=== PATIENT | female | born 1990 | race Caucasian/White ===

== ENCOUNTER 2020-11-20 11:46 | Outpatient (RCR) | payer OTHER, SELFPAY | END 2020-12-07 23:59 | disposition home or self-care (01) | LOC: SPT 11:46 | PROVIDERS: PCP Family Medicine; Referring Provider Family Medicine; Visit Provider Family Medicine | DX: M54.5 Low back pain (principal) | CPT/HCPCS: 97032; 97110; 97161 ==

== ENCOUNTER 2020-12-08 06:00 | Outpatient (RCR) | payer OTHER, SELFPAY | END 2021-01-07 23:59 | disposition home or self-care (01) | LOC: SPT 06:00 | PROVIDERS: PCP Family Medicine; Referring Provider Family Medicine; Visit Provider Family Medicine | DX: M54.5 Low back pain (principal) | CPT/HCPCS: 97032; 97110 ==